=== PATIENT | male | born 1970 | race Caucasian/White ===

== ENCOUNTER → 2016-11-22 | Day surgery (SDC) | payer OTHER ==
[2016-10-03 08:36] VITALS: Ht 188 cm; Wt 97.7 kg
[~2016-11-22] VITALS: Ht 188 cm; Wt 97.7 kg
[~2016-11-22] MED LIST: BACITRACIN OINT 15 GM TUBE ONE; CALC200T PO; CEFAZOLIN 1000MG/55 ML D5W IV SCH; CEFAZOLIN 2000 MG/60 ML D5W 60 ML IV SCH; CICL160A INH; CLR10 PO; EpINEphrine INJ 1MG/ML AMP 1 MG/ML AMP ONE; FEXO3TAB PO; FLUT0.15; GELATIN SPONGE 12-7MM ONE; IBUP-1450 PO; LACTATED RINGER'S 1000ML 1,000 ML IV SCH; LEVO50TA6 PO; LIDO 2%/EPINEPHRINE 1:100000 20 ML VIAL INFIL ONE; LIDOCAINE 4% MPF SOAK 5 ML = 1 DOSE TOP ONE; NRN600 PO; OMEP40CA41 PO; OXYM0.056 NAE; OXYMETAZOLINE HCL 0.05% NA SPR 15 ML BTL SCH; PRC4 PO; RANI150T3 PO; RIZA10TA18 PO; SULF800T23 PO; VNTHFA/IN INH
--- NOTE | 2016-11-22 11:08 | HISTORY & PHYSICAL EXAMINATION ---
DATE OF ADMISSION: DIAGNOSES: Septal deviation and chronic sinusitis. HISTORY OF PRESENT ILLNESS: This 46-year-old prisoner who was sent from [facility] because of chronic nasal obstruction, headaches and recurrent and chronic sinusitis. PAST MEDICAL HISTORY: MEDICAL PROBLEMS: Positive for asthma and osteoarthritis. PREVIOUS SURGERIES: C-spine surgery C6 and C7 in 2016. MEDICATIONS: Please refer to the patient's list of meds. ALLERGIES: None known. FAMILY HISTORY: Negative. SOCIAL HISTORY: Negative. PHYSICAL EXAMINATION: GENERAL: WNWD male. VITAL SIGNS: 6 feet 2 inches, 215 pounds. HEAD: Normocephalic. EYES: Normal. EARS: Tympanic membranes intact. NOSE: Nasal passages show septal deviation with swollen turbinates and obstruction. THROAT: Oropharynx normal. NECK: Supple. HEART: RRR. LUNGS: Clear. ABDOMEN: Soft. GENITOURINARY: Deferred. IMPRESSION: Chronic sinusitis and septal deviation. PLAN: For septoplasty and endoscopic sinus surgery.
== END | disposition home or self-care (01) ==
LOC: EDSTATUS 07:00 → C.PAT 13:17
PROVIDERS: ATTEND Otolaryngology
DX: J32.9 Chronic sinusitis, unspecified (principal)

== ENCOUNTER 2017-01-11 12:52 | Emergency (ER) | payer OTHER ==
[~2017-01-11] VITALS: Ht 188 cm; Wt 119.0 kg
[~2017-01-11 12:52] MED LIST changes: -BACITRACIN OINT 15 GM TUBE ONE; -CALC200T PO; -CEFAZOLIN 1000MG/55 ML D5W IV SCH; -CEFAZOLIN 2000 MG/60 ML D5W 60 ML IV SCH; -CICL160A INH; -EpINEphrine INJ 1MG/ML AMP 1 MG/ML AMP ONE; -GELATIN SPONGE 12-7MM ONE; -IBUP-1450 PO; -LACTATED RINGER'S 1000ML 1,000 ML IV SCH; -LEVO50TA6 PO; -LIDO 2%/EPINEPHRINE 1:100000 20 ML VIAL INFIL ONE; -LIDOCAINE 4% MPF SOAK 5 ML = 1 DOSE TOP ONE; -NRN600 PO; -OMEP40CA41 PO; -OXYM0.056 NAE; -OXYMETAZOLINE HCL 0.05% NA SPR 15 ML BTL SCH; -PRC4 PO; -RIZA10TA18 PO; -SULF800T23 PO; -VNTHFA/IN INH
[2017-01-11 13:04] VITALS: TEMP 36.6; Ht 188 cm; Wt 119.0 kg
[2017-01-11 13:43] VITALS: O2SAT 97
[2017-01-11] MEDS ORDERED: VNTHFA/IN INH (13:47)
[2017-01-11] MEDS ORDERED: LEVO50TA6 PO (13:47)
[2017-01-11] MEDS ORDERED: OXYM0.056 NAE (13:47)
[2017-01-11] MEDS ORDERED: PRC4 PO (13:47)
[2017-01-11] MEDS ORDERED: CALC200T PO (13:47)
[2017-01-11] MEDS ORDERED: CICL160A INH (13:47)
[2017-01-11] MEDS ORDERED: SULF800T23 PO (13:47)
[2017-01-11] MEDS ORDERED: IBUP-1450 PO (13:47)
[2017-01-11] MEDS ORDERED: OMEP40CA41 PO (13:47)
[2017-01-11] MEDS ORDERED: RIZA10TA18 PO (13:47)
[2017-01-11] MEDS ORDERED: NRN600 PO (13:47)
--- NOTE | 2017-01-11 13:55 | DIAGNOSTIC IMAGING REPORT ---
CHEST ONE VIEW PORTABLE CLINICAL HISTORY: Respiratory distress. Dyspnea. COMPARISON STUDY: No previous studies for comparison. FINDINGS: Incidental note is made of an anterior cervical spine fusion. Lung volumes are normal. There is no pneumothorax or pleural effusion. No consolidation is identified and there is no evidence of pulmonary edema. The cardiomediastinal silhouette is normal. IMPRESSION: No acute cardiopulmonary findings. Electronically signed by: Evans Burnham M.D. 01/11/2017 1:54 PM Dictated Date/Time: 01/11/2017 1:54 PM
[2017-01-11 13:59] LABS: BASO % 0.7 %; BASO ABS # 0.04 K/uL (0-0.2); COMPLETE YES; EOS % 5.7 %; HEMATOCRIT 42.4 % (42-52); IG% 0.7 %; LYMPH % 30.8 %; LYMPH ABS # 1.74 K/uL (1.2-3.4); MEAN CORPUSCULAR HEMOGLOBIN 26.8 pg (25-34); MEAN PLATELET VOLUME 10.2 fL (7.4-10.4); NEUT % 56.1 %; PLATELET COUNT 231 K/uL (130-400); RED BLOOD COUNT 5.37 M/uL (4.7-6.1); WHITE BLOOD COUNT 5.65 K/uL (4.8-10.8)
[2017-01-11 14:18] LABS: ALT/SGPT 48 U/L (12-78); AST/SGOT 28 U/L (15-37); BLOOD UREA NITROGEN 7 mg/dl (7-18); BUN/CREATININE RATIO 8.3 (10-20); CALCIUM 9.4 mg/dl (8.5-10.1); CARBON DIOXIDE 29 mmol/L (21-32); CHLORIDE 108 mmol/L (98-107); CREATININE 0.88 mg/dl (0.60-1.40); GLUCOSE 93 mg/dl (70-99); SODIUM 142 mmol/L (136-145)
[2017-01-11 14:23] LABS: ALB/GLOB RATIO 1.2 (0.9-2); ALKALINE PHOSPHATASE 60 U/L (45-117); CKMB/CK RATIO 0.9 (0-3.0)
--- NOTE | 2017-01-11 15:17 | DIAGNOSTIC IMAGING REPORT ---
ULTRASOUND BILATERAL LOWER EXTREMITY VENOUS CLINICAL HISTORY: Lower extremity swelling. COMPARISON STUDY: No priors. TECHNIQUE: Real-time, grayscale, and color Doppler sonography of the deep veins of the right and left lower extremity was performed from the inguinal crease to the calf. Compression and augmentation were utilized. FINDINGS: There is no sonographic evidence of deep venous thrombosis identified in the right or left lower extremity. The common femoral, superficial femoral, and popliteal veins are patent and normally compressible bilaterally. The greater saphenous vein and the profunda femoris vein at the junction with the common femoral vein are clear in both legs. The visualized calf veins are patent bilaterally. IMPRESSION: There is no sonographic evidence of deep venous thrombosis identified in the right or left lower extremity. Electronically signed by: Cuco Gauthier M.D. 01/11/2017 3:16 PM Dictated Date/Time: 01/11/2017 3:15 PM
[2017-01-11 15:26] LABS: URINE APPEARANCE CLEAR (CLEAR); URINE BILIRUBIN NEG (NEG); URINE COLOR YELLOW; URINE NITRITE NEG (NEG); URINE PH 7.5 (4.5-7.5); URINE SPECIFIC GRAVITY 1.013 (1.000-1.030); UROBILINOGEN NEG (NEG)
[2017-01-11 15:40] LABS: MANUAL MICROSCOPIC REQUIRED? NO; REVIEW REQ? NO
[2017-01-11] MEDS ORDERED: OPTIRAY 320 IV PRN (16:00)
--- NOTE | 2017-01-11 16:35 | DIAGNOSTIC IMAGING REPORT ---
(CHEST FOR PE) ANGIO WITH CT DOSE: 639.92 mGycm HISTORY: Pain dyspnea TECHNIQUE: Multiaxial CT images of the chest were performed following the intravenous administration of contrast to evaluate the pulmonary arteries. Maximal intensity projection images were also obtained. A dose lowering technique was utilized adhering to the principles of ALARA. COMPARISON STUDY: None. FINDINGS: There is a normal caliber thoracic aorta with no evidence for dissection. There is no evidence for pulmonary embolus. No pleural effusions. No pneumothorax. The liver and spleen are unremarkable. No mediastinal or hilar lymphadenopathy. The central airways are patent. The lungs are clear. Mild interstitial and peribronchial prominence is noted IMPRESSION: 1. No evidence for pulmonary embolus. 2. Mild emphysematous, peribronchial, and interstitial change 3. No well-defined focal infiltrate. The above report was generated using voice recognition software. It may contain grammatical, syntax or spelling errors. Electronically signed by: Dwayne Diane M.D. 01/11/2017 4:33 PM Dictated Date/Time: 01/11/2017 4:24 PM
--- NOTE | 2017-01-11 17:15 | EMERGENCY ROOM VISIT NOTE ---
History Report prepared by Toro: Rogelio Gann Under the Supervision of: Dr. Cordell Soni M.D. First contact with patient: 13:10 Chief Complaint: ILLNESS Stated Complaint: CHF History of Present Illness The patient is a 46 year old male who presents to the Emergency Room with complaints of constant shortness of breath beginning 8 days ago. The patient states that his symptoms began with edema to his feet and right calf tenderness. He reports that he then developed shortness of breath, edema to his hands, and dizziness. The patient notes that when he breaths his chest feels tight, and he has a dry, non-productive cough. He states that he will develop a headache randomly and have gross amounts of diaphoresis. The patient reports that exertion increases his shortness of breath. He notes that he has been having more frequent GERD episodes that have caused abdomen discomfort. The patient reports that his right arm goes numb, and he has tests in the near future. He notes that he was seen at the [facility] and had a complete work-up performed. The patient states that he had an EKG and blood work that were both unremarkable. He reports that the doctor in the [facility] was concerned for possible CHF. The patient notes that he is not able to lie down on his back; he must lay on his side. He denies doing anything out of the ordinary and a history of heart problems. The patient states he has a family history of DVT. Pt denies LOC, fevers, chills, visual changes, neck pain, chest pain, nausea, vomiting, back pain, melena, hematochezia, urinary symptoms, weakness, lymphadenopathy, rash, or other complaints. Source of History: patient Onset: 8 days ago Position: other (global) Quality: other (shortness of breath) Timing: constant Modifying Factors (Worsening): exertion, other (lying flat) Modifying Factors (Relieving): other (lying on his side) Associated Symptoms: + headache, + diaphoresis, + cough (non-productive), + chest pain (tightness), + abdominal pain, + numbness Note: Associated symptoms: edema to the feet and hands, right calf tenderness, dizziness Review of Systems See HPI for pertinent positives and negatives. A total of ten systems were reviewed and were otherwise negative. Past Medical & Surgical Medical Problems: (1) Asthma (2) GERD (gastroesophageal reflux disease) Surgical Problems: (1) Cervical vertebral fusion Family History DVT Hypertension Social History Smoking Status: Never Smoker Alcohol Use: none Housing Status: other Current/Historical Medications Scheduled Calcium Carbonate-Vitamin D (Oscal 500/200 D-3), 1 TAB PO BID Ciclesonide (Alvesco), 1 PUFF INH BID Gabapentin (Gabapentin), 600 MG PO BID Levothyroxine Sodium (Levothyroxine Sodium), 50 MCG PO DAILY Omeprazole (Prilosec), 40 MG PO DAILY Oxymetazoline Hcl (Afrin), 1 SPRAY KELSIE DAILY Sulfa/Trimethoprim (Bactrim Ds 800MG/160MG), 1 TAB PO BID Scheduled PRN Albuterol Hfa (Ventolin Hfa), 2 PUFFS INH QID PRN for SOB/Wheezing Cyproheptadine HCl (Cyproheptadine HCl), 4 MG PO TID PRN for ALLERGY SYMPTOMS Ibuprofen (Motrin), 600 MG PO TID PRN for Pain Rizatriptan Benzoate (Maxalt), 10 MG PO BID PRN for Migraine Allergies Coded Allergies: Penicillins (Unverified Allergy, Severe, RASH, 10/03/16) Physical Exam Vital Signs Date Time Temp Pulse Resp B/P (MAP) Pulse Ox O2 Delivery O2 Flow Rate FiO2 01/11/17 17:51 86 18 125/96 96 01/11/17 16:35 94 20 156/113 97 Room Air 01/11/17 14:39 80 18 121/95 97 Room Air 01/11/17 13:43 97 Room Air 01/11/17 13:43 97 Room Air 01/11/17 13:38 70 01/11/17 13:04 36.6 77 20 94 Room Air Physical Exam GENERAL: Awake, alert, well-appearing, in no distress HENT: Normocephalic, atraumatic. Oropharynx unremarkable. EYES: Normal conjunctiva. Sclera non-icteric. NECK: Supple. No nuchal rigidity. FROM. No JVD. RESPIRATORY: Clear to auscultation. CARDIAC: Regular rate, normal rhythm. Extremities warm and well perfused. Pulses equal. ABDOMEN: Soft, non-distended. No tenderness to palpation. No rebound or guarding. No masses. RECTAL: Deferred. MUSCULOSKELETAL: Chest examination reveals no tenderness. The back is symmetrical on inspection without obvious abnormality. There is no CVA tenderness to palpation. No joint edema. LOWER EXTREMITIES: Calves are equal size bilaterally and non-tender. 1+ edema. No discoloration. NEURO: Normal sensorium. No sensory or motor deficits noted. SKIN: No rash or jaundice noted. Medical Decision & Procedures ER Provider Diagnostic Interpretation: Radiology results as stated below per my review and radiologist interpretation: CHEST ONE VIEW PORTABLE CLINICAL HISTORY: Respiratory distress. Dyspnea. COMPARISON STUDY: No previous studies for comparison. FINDINGS: Incidental note is made of an anterior cervical spine fusion. Lung volumes are normal. There is no pneumothorax or pleural effusion. No consolidation is identified and there is no evidence of pulmonary edema. The cardiomediastinal silhouette is normal. IMPRESSION: No acute cardiopulmonary findings. Electronically signed by: Evans Burnham M.D. 01/11/2017 1:54 PM Dictated Date/Time: 01/11/2017 1:54 PM ULTRASOUND BILATERAL LOWER EXTREMITY VENOUS CLINICAL HISTORY: Lower extremity swelling. COMPARISON STUDY: No priors. TECHNIQUE: Real-time, grayscale, and color Doppler sonography of the deep veins of the right and left lower extremity was performed from the inguinal crease to the calf. Compression and augmentation were utilized. FINDINGS: There is no sonographic evidence of deep venous thrombosis identified in the right or left lower extremity. The common femoral, superficial femoral, and popliteal veins are patent and normally compressible bilaterally. The greater saphenous vein and the profunda femoris vein at the junction with the common femoral vein are clear in both legs. The visualized calf veins are patent bilaterally. IMPRESSION: There is no sonographic evidence of deep venous thrombosis identified in the right or left lower extremity. Electronically signed by: Cuco Gauthier M.D. 01/11/2017 3:16 PM Dictated Date/Time: 01/11/2017 3:15 PM (CHEST FOR PE) ANGIO WITH CT DOSE: 639.92 mGycm HISTORY: Pain dyspnea TECHNIQUE: Multiaxial CT images of the chest were performed following the intravenous administration of contrast to evaluate the pulmonary arteries. Maximal intensity projection images were also obtained. A dose lowering technique was utilized adhering to the principles of ALARA. COMPARISON STUDY: None. FINDINGS: There is a normal caliber thoracic aorta with no evidence for dissection. There is no evidence for pulmonary embolus. No pleural effusions. No pneumothorax. The liver and spleen are unremarkable. No mediastinal or hilar lymphadenopathy. The central airways are patent. The lungs are clear. Mild interstitial and peribronchial prominence is noted IMPRESSION: 1. No evidence for pulmonary embolus. 2. Mild emphysematous, peribronchial, and interstitial change 3. No well-defined focal infiltrate. The above report was generated using voice recognition software. It may contain grammatical, syntax or spelling errors. Electronically signed by: Dwayne Diane M.D. 01/11/2017 4:33 PM Dictated Date/Time: 01/11/2017 4:24 PM Laboratory Results 01/11/17 13:40 Red Blood Count 5.37, Mean Corpuscular Volume 79.0, Mean Corpuscular Hemoglobin 26.8, Mean Corpuscular Hemoglobin Concent 34.0, Mean Platelet Volume 10.2, Neutrophils (%) (Auto) 56.1, Lymphocytes (%) (Auto) 30.8, Monocytes (%) (Auto) 6.0, Eosinophils (%) (Auto) 5.7, Basophils (%) (Auto) 0.7, Neutrophils # (Auto) 3.17, Lymphocytes # (Auto) 1.74, Monocytes # (Auto) 0.34, Eosinophils # (Auto) 0.32, Basophils # (Auto) 0.04 01/11/17 13:40 Test 01/11/17 13:40 01/11/17 14:30 White Blood Count 5.65 K/uL (4.8-10.8) Red Blood Count 5.37 M/uL (4.7-6.1) Hemoglobin 14.4 g/dL (14.0-18.0) Hematocrit 42.4 % (42-52) Mean Corpuscular Volume 79.0 fL (80-100) Mean Corpuscular Hemoglobin 26.8 pg (25-34) Mean Corpuscular Hemoglobin Concent 34.0 g/dl (32-36) Platelet Count 231 K/uL (130-400) Mean Platelet Volume 10.2 fL (7.4-10.4) Neutrophils (%) (Auto) 56.1 % Lymphocytes (%) (Auto) 30.8 % Monocytes (%) (Auto) 6.0 % Eosinophils (%) (Auto) 5.7 % Basophils (%) (Auto) 0.7 % Neutrophils # (Auto) 3.17 K/uL (1.4-6.5) Lymphocytes # (Auto) 1.74 K/uL (1.2-3.4) Monocytes # (Auto) 0.34 K/uL (0.11-0.59) Eosinophils # (Auto) 0.32 K/uL (0-0.5) Basophils # (Auto) 0.04 K/uL (0-0.2) RDW Standard Deviation 37.7 fL (36.4-46.3) RDW Coefficient of Variation 13.3 % (11.5-14.5) Immature Granulocyte % (Auto) 0.7 % Immature Granulocyte # (Auto) 0.04 K/uL (0.00-0.02) Anion Gap 5.0 mmol/L (3-11) Est Creatinine Clear Calc Drug Dose 146.9 ml/min Estimated GFR () 121.1 Estimated GFR (Non- 104.5 BUN/Creatinine Ratio 8.3 (10-20) Calcium Level 9.4 mg/dl (8.5-10.1) Total Bilirubin 0.6 mg/dl (0.2-1) Aspartate Amino Transf (AST/SGOT) 28 U/L (15-37) Alanine Aminotransferase (ALT/SGPT) 48 U/L (12-78) Alkaline Phosphatase 60 U/L (45-117) Total Creatine Kinase 198 U/L (39-308) Creatine Kinase MB 1.8 ng/ml (0.5-3.6) Creatine Kinase MB Ratio 0.9 (0-3.0) Troponin I < 0.015 ng/ml (0-0.045) Pro-B-Type Natriuretic Peptide 14 pg/ml (0-450) Total Protein 7.1 gm/dl (6.4-8.2) Albumin 3.9 gm/dl (3.4-5.0) Globulin 3.2 gm/dl (2.5-4.0) Albumin/Globulin Ratio 1.2 (0.9-2) Thyroid Stimulating Hormone (TSH) 4.340 uIu/ml (0.300-4.500) Urine Color YELLOW Urine Appearance CLEAR (CLEAR) Urine pH 7.5 (4.5-7.5) Urine Specific [place] 1.013 (1.000-1.030) Urine Protein NEG (NEG) Urine Glucose (UA) NEG (NEG) Urine Ketones NEG (NEG) Urine Occult Blood NEG (NEG) Urine Nitrite NEG (NEG) Urine Bilirubin NEG (NEG) Urine Urobilinogen NEG (NEG) Urine Leukocyte Esterase NEG (NEG) Laboratory results reviewed by me ECG Indication: SOB/dyspnea Rate (beats per minute): 79 Rhythm: normal sinus Findings: no acute ischemic change, no ectopy ED Course 1322: The patient was evaluated in room C11B. A complete history and physical exam was performed. 1549: I reevaluated the patient. He states that he is stable. He is on his way to his chest CT. 1733: I reevaluated the patient. Discussed results and discharge instructions: he verbalized understanding and agreement. He will receive a copy of for the [facility] at the [facility]. The patient is ready for discharge. Medical Decision Triage Nursing notes reviewed. The patient's presentation and history were concerning for leg swelling and breathing issues. Etiologies such as CHF, DVT, cardiac sources, medication, infection, trauma, muscular, lymphedema, idiopathic,as well as others were entertained. Patient was evaluated. Hemodynamically was stable. His ECG was normal. Chest x-ray did not reveal any significant abnormalities. His examination showed just trace edema. He had an unremarkable CBC, chemistry panel, LFTs, BNP, and cardiac markers. No x-ray or laboratory work to support CHF or acute coronary issues. Lower extremity ultrasound. No DVT. The patient's CT scan of his chest did not reveal any evidence of pulmonary embolus. Medications were reviewed and there were no gross abnormalities noted that could cause edema issues. The patient may be experiencing this from his gabapentin although this is reported as only 8% risk. He is not hyperthyroid therefore the levothyroxine should not be an issue. At this point I will refer him back to his primary physician at the to continue the evaluation. The patient also does admit to using a significant amount of salt with his meals. He was counseled. I gave my usual and customary discussion regarding this issue. By the evaluation outlined above other emergent etiologies such as those listed in the differential, as well as others, were deemed relatively unlikely. The patient was educated about the findings as listed above. All questions were answered and the patient was pleased with the treatment. Return instructions were outlined and the patient was discharged in stable condition. The patient was referred to the [facility] for follow-up for a recheck of the current condition. Medication Reconcilliation Current Medication List: was personally reviewed by me Blood Pressure Screening Patient's blood pressure: Elevated blood pressure Blood pressure disposition: Referred to PCP Impression Primary Impression: Edema Scribe Attestation The scribe's documentation has been prepared under my direction and personally reviewed by me in its entirety. I confirm that the note above accurately reflects all work, treatment, procedures, and medical decision making performed by me. Departure Information Dispostion Home / Self-Care Referrals Sajan MIN (PCP) Patient Instructions My [facility] Additional Instructions Continue current medications although have his medicines reviewed by the primary physician as the gabapentin may cause some of the edema. Rest. Low-salt diet. Elevate the legs when possible. Return to the ER immediately for worsening edema, spreading redness, fevers, chest pain, severe pain, or as needed.
[2017-01-11 17:51] VITALS: BP 125/96; PULSE 86; O2SAT 96
== END 2017-01-11 17:42 | disposition home or self-care (01) ==
LOC: C.EDB 12:55 → C.EDC 17:42
DX: R60.9 Edema, unspecified (principal); J45.909 Unspecified asthma, uncomplicated; K21.9 Gastro-esophageal reflux disease without esophagitis; Z82.49 Family history of ischemic heart disease and other diseases of the circulatory system